=== PATIENT | male | born 1960 | race Caucasian/White ===

== ENCOUNTER → 2017-04-04 | Outpatient (CLI) | payer OTHER ==
[~2017-04-04] MED LIST: GLUC500C29 PO; HYDR-2946 PO; NERVE MED; SIMV-44 PO; TAMS0.4C76; [UNRECOGNIZED DRUG - CODE] PO
--- NOTE | 2017-04-04 16:29 | RADIOLOGY IMAGING REPORT ---
FACILITY: [facility] - [place] PATIENT NAME: Zee Moody : 1960 MR: [id number] V: [id number] EXAM DATE: ORDERING PHYSICIAN: MORGAN RUSSO TECHNOLOGIST: Location: [facility] - [place] Patient: Zee Moody : 1960 Visit/Account:[id number] Date of Sevice: 04/04/2017 GALLBLADDER HISTORY: Right upper quadrant pain COMPARISON: None. FINDINGS: Gallbladder: Unremarkable; no stones or sludge. Liver: There is a subtle echogenic nodule in the left lobe of the liver measuring 1.5 x 1.4 x 2.4 cm Common duct: Normal, 4.1 mm diameter. Pancreas: Partially obscured by bowel, visualized aspects unremarkable. Right kidney: Appears unremarkable as imaged measuring 11.3 cm in length with no evidence of hydronep hrosis. Upper abdominal aorta and IVC: Patent. Ascites: None visualized. IMPRESSION: There is a subtle echogenic nodule in the left lobe the liver measuring 1.5 x 1.4 x 2.4 cm. This cou ld be further evaluated with CT or MR the liver with and without contrast Report Dictated By: Emely Chu MD at 04/04/2017 4:23 PM Report E-Signed By: Emely Chu MD at 04/04/2017 4:25 PM WSN:[email or web address]
== END ==
LOC: US 07:37
PROVIDERS: ATTEND Family Medicine
DX: K76.89 Other specified diseases of liver (principal)
CPT/HCPCS: 76705

== ENCOUNTER → 2017-04-07 | Outpatient (CLI) | payer OTHER ==
[~2017-04-07] MED LIST changes: +IOPAMIDOL 76% 75 ML INFUS BTL 75 ML ONE; +NS 0.9% 20 ML SDV 40 ML ONE
--- NOTE | 2017-04-07 18:15 | RADIOLOGY IMAGING REPORT ---
[place] [facility] [place] Zee Moody : 1960 MR: [id number] V: [id number] EXAM DATE: ORDERING PHYSICIAN: MORGAN RUSSO TECHNOLOGIST: Location: [facility] - [place] Patient: Zee Moody : 1960 Visit/Account:[id number] Date of Sevice: 04/07/2017 EXAMINATION: CT abdomen without and with IV contrast HISTORY: Liver mass. TECHNIQUE: Axial CT images of the abdomen were obtained without and with IV contrast, with coronal and sagittal 2D reconstructed images. One of the following dose optimization techniques was utilized in the performance of this exam: Autom ated exposure control; adjustment of the mA and/or kV according to the patient's size; or use of an i terative reconstruction technique. Specific details can be referenced in the facility's radiology C T exam operational policy. Contrast: 75 mL of IV [id number]. COMPARISON: Abdominal ultrasound 04/04/2017. FINDINGS: Liver: Normal hepatic size and morphology. There is some mild focal fatty infiltration adjacent to t he fissure for the ligamentum teres. This may correspond with the subtle focus of increased echogenic ity in the left lobe of the liver on the prior ultrasound. There is no CT evidence of any discrete li ellie mass. The hepatic veins and portal veins are patent. Gallbladder and bile ducts: Negative. Spleen: Negative. Pancreas: Negative. Adrenal glands: Negative. Kidneys: Negative. No hydronephrosis or urinary calculi. Bowel and peritoneum: Visualized portions of the small bowel and colon are normal in caliber. Unrema rkable appendix in the right lower abdomen. No abdominal ascites. No free intraperitoneal air. Lymph node assessment: Negative. Vessels: There is a left-sided infrarenal IVC, a normal anatomic variant. Musculoskeletal: Scattered degenerative changes throughout the spine. No acute osseous findings or suspicious focal osseous lesions. Body wall: Negative. Lung bases: Negative. IMPRESSION: 1. No CT evidence of any focal liver mass. There is slight focal fatty infiltration adjacent to the f issure for the ligamentum teres. This may correspond with a subtle region of increased echogenicity o n the prior ultrasound. 2. No acute intra-abdominal findings. Report Dictated By: Landen Stiles MD at 04/07/2017 6:04 PM Report E-Signed By: Landen Stiles MD at 04/07/2017 6:11 PM WSN:[id number]
== END ==
LOC: CT 16:07
PROVIDERS: ATTEND Family Medicine
DX: K76.0 Fatty (change of) liver, not elsewhere classified (principal)
CPT/HCPCS: 74170; J7050; Q9967